=== PATIENT | female | born 2000 | race Caucasian/White ===

== ENCOUNTER 2024-05-15 19:16 | Emergency (ER) | payer SELFPAY ==
[~2024-05-15] VITALS: Ht 160 cm; Wt 67.8 kg
[2024-05-15 19:50] VITALS: O2SAT 98
[2024-05-15 19:57] VITALS: TEMP 37.2; O2SAT 98
[2024-05-15 23:30] VITALS: BP 111/80; PULSE 113; RESP 16
[2024-05-15] MEDS: METOCLOPRAMIDE HCL 10MG TABLET PO ONE (23:30)
[2024-05-15] MEDS: DIPHENHYDRAMINE 12.5MG/5ML UDC PO ONE (23:30)
[2024-05-15] MEDS: KETOROLAC 15MG/ML VIAL IM ONE (23:30)
[2024-05-16] MEDS: KETOROLAC 15MG/ML VIAL IM NR (02:00)
[2024-05-16] MEDS: DIPHENHYDRAMINE 12.5MG/5ML UDC PO NR (02:00)
[2024-05-16] MEDS: METOCLOPRAMIDE HCL 10MG TABLET PO NR (02:00)
== END 2024-05-16 02:53 | disposition home or self-care (01) ==
LOC: ER 20:15
DX: R51.9 Headache, unspecified (principal)
CPT/HCPCS: 99283; 96372; 81025; J1885; J8597; Q0163